=== PATIENT | female | born 2000 | race Two or more races ===

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

== ENCOUNTER 2019-02-04 20:22 | Emergency (ER) | payer BC, OTHER ==
[2019-02-04 20:27] VITALS: BP 128/94
--- NOTE | 2019-02-04 21:26 | ED ---
Upper Extremity Pain - HPI Summary HPI Summary: Patient complains of pain to left ring finger from playing football. Patient states she believes he jammed it. Denies any other pain injury or symptoms. - History of Current Complaint Chief Complaint: EDExtremityUpper Stated Complaint: JAMMED FINGER PER PT Time Seen by Provider: 02/04/19 21:04 Hx Obtained From: Patient Mechanism Of Injury: Blunt Trauma Onset/Duration: Started Hours Ago Timing: Constant Severity Initially: Moderate Severity Currently: Moderate Pain Location: Finger Character: Dull, Aching, Throbbing Aggravating Factor(s): Movement Alleviating Factor(s): Rest, Ice Associated Signs & Symptoms: Positive: Swelling, Bruising - Allergies/Home Medications Allergies/Adverse Reactions: Allergies Allergy/AdvReac Type Severity Reaction Status Date / Time No Known Allergies Allergy Verified 02/04/19 20:25 PMH/Surg Hx/FS Hx/Imm Hx Endocrine/Hematology History: Denies: Hx Anticoagulant Therapy Cardiovascular History: Denies: Hx Pacemaker/ICD History: Denies: Hx Dialysis Sensory History: Denies: Hx Eye Prosthesis Opthamlomology History: Denies: Hx Legally Blind EENT History: Denies: Hx Deafness Neurological History: Denies: Hx Dementia Infectious Disease History: No Infectious Disease History: Denies: Traveled Outside the [place] in Last 30 Days - Family History Known Family History: Positive: Non-Contributory - Social History Alcohol Use: Weekly Substance Use Type: Reports: None Smoking Status (MU): Never Smoked Tobacco Review of Systems Constitutional: Negative Eyes: Negative ENT: Negative Cardiovascular: Negative Respiratory: Negative Gastrointestinal: Negative Genitourinary: Negative Musculoskeletal: Other Skin: Negative Neurological: Negative Psychological: Normal All Other Systems Reviewed And Are Negative: Yes Physical Exam - Summary Physical Exam Summary: Swelling to PIP joint of the left ring finger. Patient able to flex and extend with pain at each individual joint of left ring finger. PMS intact distally. No pain with flexion or extension of left wrist or other fingers. Triage Information Reviewed: Yes Vital Signs On Initial Exam: Initial Vitals Temp Pulse Resp BP Pulse Ox 97.9 F 96 15 128/94 99 02/04/19 20:23 02/04/19 20:23 02/04/19 20:23 02/04/19 20:23 02/04/19 20:23 Vital Signs Reviewed: Yes Appearance: Positive: Well-Appearing Skin: Positive: Warm Head/Face: Positive: Normal Head/Face Inspection Eyes: Positive: Normal Neck: Positive: Supple Respiratory/Lung Sounds: Positive: Clear to Auscultation Cardiovascular: Positive: Normal Abdomen Description: Positive: Nontender Musculoskeletal: Positive: Normal Neurological: Positive: Normal Psychiatric: Positive: Normal AVPU Assessment: Alert - Gema Coma Scale Best Eye Response: 4 - Spontaneous Best Motor Response: 6 - Obeys Commands Best Verbal Response: 5 - Oriented Coma Scale Total: 15 Diagnostics - Vital Signs Vital Signs Temp Pulse Resp BP Pulse Ox 02/04/19 20:23 97.9 F 96 15 128/94 99 - Laboratory Lab Statement: Any lab studies that have been ordered have been reviewed, and results considered in the medical decision making process. Course/Dx - Course Course Of Treatment: Patient complains of pain to left ring finger from playing football. Patient states she believes he jammed it. Denies any other pain injury or symptoms. Vital signs within normal limits. X-ray negative for fracture. Patient placed in splint by this provider to facilitate healing. - Diagnoses Provider Diagnoses: Jammed interphalangeal joint of finger of left hand Discharge ED - Sign-Out/Discharge Documenting (check all that apply): Patient Departure Patient Received Moderate/Deep Sedation with Procedure: No - Discharge Plan Condition: Stable Disposition: HOME Patient Education Materials: Jammed Finger (ED) Referrals: No Primary Care Phys,NOPCP [Primary Care Provider] - Additional Instructions: Ice finger frequently. Ibuprofen for pain. Wear brace until it feels better. - Billing Disposition and Condition Condition: STABLE Disposition: Home
--- NOTE | 2019-02-05 10:56 | PN ---
Progress Note - Progress Note Date of Service: 02/05/19 Note: xray final reading: Nondisplaced fracture through the volar base of the fourth middle phalanx. left vm with results instruction to use splint or orquidea tape and to follow up with ortho or porfirio.
== END 2019-02-04 21:40 | disposition home or self-care (01) ==
LOC: ED 20:22
DX: S62.655A Nondisplaced fracture of middle phalanx of left ring finger, initial encounter for closed fracture (principal); W21.01XA Struck by football, initial encounter; Y92.9 Unspecified place or not applicable
CPT/HCPCS: 73140; 99282

== ENCOUNTER 2019-03-23 15:33 | Emergency (ER) | payer OTHER ==
[2019-03-23 16:09] VITALS: BP 113/73
--- NOTE | 2019-03-23 16:57 | UC ---
Laceration HPI - HPI Summary HPI Summary: was cut in nose last evening with a balloon weight, no LOC, no diff breathing, no headache - History Of Current Complaint Chief Complaint: UCSkin Stated Complaint: FACIAL LAC Time Seen by Provider: 03/23/19 16:37 Hx Obtained From: Patient Hx Last Menstrual Period: 03/17/19 Laceration Location: Face Mechanism Of Injury: Blunt Trauma Onset/Duration: Sudden Onset Severity: Moderate Pain Intensity: 4 Aggravating Factors: Nothing Head: 1 - laceration - Allergies/Home Medications Allergies/Adverse Reactions: Allergies Allergy/AdvReac Type Severity Reaction Status Date / Time No Known Allergies Allergy Verified 03/23/19 16:09 Home Medications: Home Medications Dextroamphetamine/Amphetamine [Mydayis ER 12.5 mg Capsule] 12.5 mg PO DAILY 07/10 [History Confirmed 03/23/19] Dextroamphetamine/Amphetamine [Mydayis ER 50 mg Capsule] 50 mg PO DAILY [History Confirmed 03/23/19] PMH/Surg Hx/FS Hx/Imm Hx Previously Healthy: Yes Other History Of: Negative For: Anticoagulant Therapy - Surgical History Surgical History: None - Family History Known Family History: Positive: Non-Contributory - Social History Occupation: Student Lives: Dormitory/Roommates Alcohol Use: Occasionally Substance Use Type: None Smoking Status (MU): Never Smoked Tobacco Review of Systems All Other Systems Reviewed And Are Negative: Yes Constitutional: Positive: Negative ENT: Positive: Negative. Negative: Epistaxis Respiratory: Positive: Negative Cardiovascular: Positive: Negative Neurological: Positive: Negative. Negative: Headache Psychological: Positive: Negative Is Patient Immunocompromised?: No Physical Exam Triage Information Reviewed: Yes Appearance: Well-Appearing, No Pain Distress, Well-Nourished Vital Signs: Initial Vital Signs Temp 99 F 03/23/19 16:03 Pulse 70 03/23/19 16:03 Resp 16 03/23/19 16:03 BP 113/73 03/23/19 16:03 Pulse Ox 100 03/23/19 16:03 Vital Signs Reviewed: Yes Eyes: Positive: Conjunctiva Clear ENT: Positive: Other - no nasal deformity detected, bilateral nares patent. Negative: Nasal congestion, Nasal drainage Neck exam: Normal Neck: Positive: Supple, Nontender Respiratory Exam: Normal Respiratory: Positive: Lungs clear Cardiovascular Exam: Normal Cardiovascular: Positive: RRR Skin Exam: Other - 8mm cresent shaped laceration L bridge nose Laceration Repair - Laceration Repair 1 Description: Irregular - cresent shaped Laceration Size After Repair: Length (cm) - 8mm, Width (mm) - 3mm, Depth (mm) - 2mm Modified For Repair: No Closure Material: Skin Adhesive, SteriStrips Laceration Course/Dx - Differential Dx - Laceration/Wound Differental Diagnoses: Abrasion, Avulsion, Laceration, Other - fractured nose - Diagnosis Provider Diagnosis: Laceration Discharge ED - Sign-Out/Discharge Documenting (check all that apply): Patient Departure All imaging exams completed and their final reports reviewed: No Studies - Discharge Plan Condition: Good Disposition: HOME Patient Education Materials: Facial Laceration (ED) Referrals: No Primary Care Phys,NOPCP [Primary Care Provider] - Additional Instructions: keep wound dry and let steri strips fall off on their own over next 5-6 days report signs of redness, swelling or drainage from wound use ibuprofen as directed for pain if needed - Billing Disposition and Condition Condition: GOOD Disposition: Home - Attestation Statements Provider Attestation: Per institutional requirements, I have reviewed the chart, however, I was not consulted specifically or made aware of this patient by the midlevel provider. I did not personally evaluate, interact with , or disposition this patient.
== END 2019-03-23 17:24 | disposition home or self-care (01) ==
LOC: UCEAST 15:33
DX: S01.21XA Laceration without foreign body of nose, initial encounter (principal); W26.9XXA Contact with unspecified sharp object(s), initial encounter; Y92.9 Unspecified place or not applicable
CPT/HCPCS: 99211; G0463

== ENCOUNTER 2019-04-28 00:10 | Emergency (ER) | payer OTHER ==
[2019-04-28 00:54] LABS: ABS Basophils 0.1 10^3/ul (0-0.2); ABS Eosinophils 0.2 10^3/ul (0-0.6); ABS Lymphocytes 2.6 10^3/ul (1.0-4.8); ABS Monocytes 0.5 10^3/ul (0-0.8); ABS Neutrophils 4.8 10^3/ul (1.5-7.7); Eosinophil % 2.5 %; Hematocrit 36 % (35-47); Hemoglobin 12.3 g/dL (12.0-16.0); Lymphocyte % 31.6 %; Mean Corpuscular HGB Conc 34 g/dL (31-36); Mean Corpuscular Hemoglobin 30 pg (27-31); Mean Corpuscular Volume 88 fL (80-97); Mean Platelet Volume 7.9 fL (7.4-10.4); Nucleated Red Blood Cells % 0.1; Platelet Count 237 10^3/uL (150-450); Red Cell Distribution Width 14 % (10-15); White Blood Count 8.1 10^3/uL (3.5-10.8)
--- NOTE | 2019-04-28 00:55 | ED ---
Psychiatric Complaint - HPI Summary HPI Summary: This patient is a 19 year old F presenting to [facility] with a chief complaint of suicidal ideation since prior to arrival. Pt was drinking, and her friends were worried about her mental health. Pt thought she just was overreacting/ being dramatic, when she said something that set off her friends. Pt takes medications. Pt is not allergic to anything. Her last period was in February. - History Of Current Complaint Chief Complaint: EDSuicidal Time Seen by Provider: 04/28/19 00:27 Hx Obtained From: Patient Hx Last Menstrual Period: 03/17/19 Onset/Duration: Sudden Onset, Resolved Timing: Minutes Severity Currently: None Character: Lethargic Aggravating Factor(s): Alcohol Use Alleviating Factor(s): Nothing Associated Signs And Symptoms: Positive: Negative Has Suicidal: Reports: Thoughts - Allergies/Home Medications Allergies/Adverse Reactions: Allergies Allergy/AdvReac Type Severity Reaction Status Date / Time No Known Allergies Allergy Verified 04/28/19 00:13 Home Medications: Home Medications traZODone TAB* [Desyrel TAB*] 50 mg PO BEDTIME 04/28/19 [History Confirmed 04/28] PMH/Surg Hx/FS Hx/Imm Hx Endocrine/Hematology History: Denies: Hx Anticoagulant Therapy Cardiovascular History: Denies: Hx Pacemaker/ICD History: Denies: Hx Dialysis Sensory History: Denies: Hx Eye Prosthesis, Hx Legally Blind, Hx Deafness Opthamlomology History: Denies: Hx Eye Prosthesis, Hx Legally Blind Neurological History: Denies: Hx Dementia - Immunization History Date of Tetanus Vaccine: utd Date of Influenza Vaccine: none Infectious Disease History: No Infectious Disease History: Denies: Traveled Outside the [place] in Last 30 Days - Family History Known Family History: Negative: Blood Disorder - Social History Occupation: Student Lives: Dormitory/Roommates Alcohol Use: Occasionally Alcohol Amount: 2 drinks today Substance Use Type: Reports: None Smoking Status (MU): Never Smoked Tobacco - Additional Comments History Additional Comments: Home Medications Medication Instructions Recorded Confirmed Type Dextroamphetamine/Amphetamine 12.5 mg PO DAILY 03/23/19 04/28/19 History [Mydayis ER 12.5 mg Capsule] Dextroamphetamine/Amphetamine 50 mg PO DAILY 03/23/19 04/28/19 History [Mydayis ER 50 mg Capsule] traZODone TAB* [Desyrel TAB*] 50 mg PO BEDTIME 04/28/19 04/28/19 History Review of Systems Negative: Fever Positive: Other - Sucidal ideation All Other Systems Reviewed And Are Negative: Yes Physical Exam - Summary Physical Exam Summary: General: Well-developed, Well-nourished female. No acute distress. Mildly sleepy HEENT: Normocephalic, Atraumatic. Eyes: Conjuctiva normal, PERRL. Oropharynx: Clear, mucous membranes moist, (-) exudates. Neck: Soft, FROM, (-) lymphadenopathy, (-) thyromegaly, (-) JVD. Cardiovascular: Normal sinus rhythm, (-) murmur. Lungs: Clear to auscultation bilaterally (-) wheezes, (-) rales, (-) rhonchi. Abdomen: Soft, non-tender, non-distended, (-) organomegaly, normal bowel sounds. Back: (-) CVA tenderness Extremities: No edema. Skin: Warm, dry, (-) rash. Neuro: Alert and oriented x3, no focal deficits. Psychiatric: Mood normal, affect normal, good eye contact. Triage Information Reviewed: Yes Vital Signs On Initial Exam: Initial Vitals Temp Pulse Resp BP Pulse Ox 98.3 F 75 15 119/64 98 04/28/19 00:16 04/28/19 00:16 04/28/19 00:16 04/28/19 00:16 04/28/19 00:16 Vital Signs Reviewed: Yes Procedures - Sedation Patient Received Moderate/Deep Sedation with Procedure: No Diagnostics - Vital Signs Vital Signs Temp Pulse Resp BP Pulse Ox 04/28/19 00:16 98.3 F 75 15 119/64 98 - Laboratory Result Diagrams: 04/28/19 00:44 04/28/19 00:44 Lab Statement: Any lab studies that have been ordered have been reviewed, and results considered in the medical decision making process. Course/Dx - Course Course Of Treatment: 19-year-old female presents for mental health evaluation. Patient admits to drinking. She admits to discussing suicidal ideation. She states she's had fleeting thoughts. Does not feel suicidal. Does not have a plan. Patient's blood alcohol elevated, 156. Patient rested and sobered up. Head sober friend come pick her up on appropriate. Patient discharged. Upon discharge patient denies any suicidal ideation. - Differential Dx/Clinical Impression Provider Diagnosis: Acute alcohol intoxication, Mood disorder Discharge ED - Sign-Out/Discharge Documenting (check all that apply): Patient Departure - Discharge - Discharge Plan Condition: Stable Disposition: HOME Patient Education Materials: Mood Disorders (ED) Referrals: [facility] [place] - Tommy ADAMS [Z.BUSINESS, APPLICATION, OTHER] - 3 Days Additional Instructions: Please follow up with your primary care physician within three days. Please return to ED for any new or worsening symptoms. - Billing Disposition and Condition Condition: STABLE Disposition: Home - Attestation Statements Document Initiated by Jemimaibe: Yes Documenting Scribe: Agata Curry Provider For Whom Clementina is Documenting (Include Credential): Dr. Adela West MD Scribe Attestation: Agata Hannon scribed for Dr. Adela West MD on 04/28/19 at 0559. Scribe Documentation Reviewed: Yes Provider Attestation: The documentation as recorded by the Agata nieves accurately reflects the service I personally performed and the decisions made by me, Dr. Adela West MD Status of Scribe Document: Viewed
[2019-04-28 01:12] LABS: ALT 18 U/L (7-52); AST 18 U/L (13-39); Albumin 4.2 g/dL (3.2-5.2); Albumin/Globulin Ratio 1.8 (1-3); Alkaline Phosphatase 79 U/L (34-104); Anion Gap 9 mmol/L (2-11); BUN/Creatinine Ratio 28.2 (8-20); Blood Urea Nitrogen 20 mg/dL (6-24); CO2 Carbon Dioxide 23 mmol/L (22-32); Calcium 9.2 mg/dL (8.6-10.3); Chloride 109 mmol/L (101-111); EGFR African American 125.7 (>60); EGFR Non-African American 103.9 (>60); Globulin 2.3 g/dL (2-4); Glucose 99 mg/dL (70-100); Sodium 141 mmol/L (135-145); Total Protein 6.5 g/dL (6.4-8.9)
[2019-04-28 01:13] LABS: Alcohol 156 mg/dL (<10); Salicylate < 2.50 mg/dL (<30)
[2019-04-28 01:19] LABS: Acetaminophen < 15 mcg/mL; HCG Pregnancy < 0.60 mIU/mL
[2019-04-28 01:27] LABS: TSH (Thyroid Stimulating Horm) 0.56 mcIU/mL (0.34-5.60)
[2019-04-28 04:22] VITALS: BP 101/78
== END 2019-04-28 04:21 | disposition home or self-care (01) ==
LOC: ED 00:10
DX: F10.929 Alcohol use, unspecified with intoxication, unspecified (principal); F39 Unspecified mood [affective] disorder; Z79.899 Other long term (current) drug therapy
CPT/HCPCS: 36415; 80053; 80320; 80329; 84443; 84702; 85025; 99282; G0480